=== PATIENT | male | born 1980 | race Caucasian/White ===

== ENCOUNTER 2017-04-25 20:26 | Emergency (ER) | payer MEDICARE, MEDICAID ==
[2017-04-25 20:47] VITALS: BP 135/45
[2017-04-25] MEDS ORDERED: Ketorolac 60 MG/2 ML SDV IM ONE (21:01)
--- NOTE | 2017-04-25 21:04 | EDM.PDOC ---
ED HPI GENERAL MEDICAL PROBLEM - General Chief Complaint: Upper Extremity Injury/Pain Stated Complaint: RIGHT SHOULDER DISLOCATION Time Seen by Provider: 04/25/17 20:57 Source of Information: Reports: Patient, Family, RN Notes Reviewed History Limitations: Reports: No Limitations - History of Present Illness INITIAL COMMENTS - FREE TEXT/NARRATIVE: 36-year-old gentleman presents to emergency department today with complaint of right shoulder pain, he has a history of multiple shoulder dislocations he feels he recently dislocated shoulder. While intake with nursing staff he had a spontaneous reduction, improved pain control now 5 out of 10 - Related Data Allergies Allergy/AdvReac Type Severity Reaction Status Date / Time gabapentin Allergy Unknown Bleeding Verified 04/25/17 20:36 lidocaine Allergy Unknown Swollen Verified 04/25/17 20:36 Tongue Home Meds: Home Meds Carisoprodol 350 mg PO QID PRN 02/11/13 [History] Pantoprazole [ProTONIX] 40 mg PO BIDAC #60 tab.cr 07/25/13 [Rx] oxyCODONE HCl [Oxycontin] 30 mg PO Q4H 11/09/13 [History] Ondansetron [Zofran ODT] 4 mg PO Q8H PRN 10/02/14 [History] Past Medical History Gastrointestinal History: Reports: PUD Musculoskeletal History: Reports: Fracture, Other (See Below) (Multiple shoulder dislocations with surgeries) Neurological History: Reports: Other (See Below) 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 - Infectious Disease History Infectious Disease History: Reports: Chicken Pox - Past Surgical History Musculoskeletal Surgical History: Reports: Shoulder Surgery, Other (See Below) Social & Family History - Tobacco Use Smoking Status *Q: Current Every Day Smoker Years of Tobacco use: 10 Packs/Tins Daily: 0.5 Used Tobacco, but Quit: No Month Tobacco Last Used: nov Second Hand Smoke Exposure: Yes - Caffeine Use Caffeine Use: Reports: None - Alcohol Use Days Per Week of Alcohol Use: 0 - Recreational Drug Use Recreational Drug Use: No Recreational Drug Type: Reports: Marijuana/Hashish Recreational Drug Use Frequency: Socially Review of Systems - Review of Systems Review Of Systems: See Below Constitutional: Reports: No Symptoms Musculoskeletal: Reports: Shoulder Pain Skin: Reports: No Symptoms Neurological: Reports: No Symptoms ED EXAM, GENERAL - Physical Exam Exam: See Below Free Text/Narrative:: examination of the left shoulder do appreciate scar tissue in the integument system I cannot appreciate any bump he does have limited range of motion of the shoulder radial pulse is +2. Range of motion of digits Course - Vital Signs Last Recorded V/S: Last Vital Signs Temp 97.7 F 04/25/17 20:44 Pulse 80 04/25/17 20:44 Resp 14 04/25/17 20:44 BP 135/45 L 04/25/17 20:44 Pulse Ox 96 04/25/17 20:44 - Orders/Labs/Meds Orders: Active Orders 24 hr Category Date Time Status Shoulder Comp Rt [CR] Stat Exams 04/25/17 21:01 Taken Meds: Medications Discontinued Medications Generic Name Dose Route Start Last Admin Trade Name Royal PRN Reason Stop Dose Admin Ketorolac Tromethamine 60 mg 04/25/17 21:01 04/25/17 21:07 Toradol IM 04/25/17 21:02 60 mg ONETIME ONE Administration Departure - Departure Time of Disposition: 21:34 Disposition: Home, Self-Care 01 Condition: Fair Clinical Impression: Recurrent dislocation, right shoulder - Discharge Information Referrals: Jimmy Rawls MD [Primary Care Provider] - Forms: ED Department Discharge Additional Instructions: Please contact your orthopedic surgeon next week for further evaluation, call return to the emergency department with worsening of symptoms - My Orders Last 24 Hours: My Active Orders 04/25/17 21:01 Shoulder Comp Rt [CR] Stat - Assessment/Plan Last 24 Hours: My Active Orders 04/25/17 21:01 Shoulder Comp Rt [CR] Stat Plan: Assessment Acuity = acute Site and laterality = recurrent shoulder dislocation Etiology = spontaneous reduction Manifestations = pain Location of injury = Home Lab values = x-ray shows appropriate alignment of the shoulder, official read radiology is pending Plan He was provided 60 mg Toradol for pain control, and to follow-up with orthopedics next week This note was dictated using [email or web address] voice recognition software please call with any questions on syntax or aldair.
--- NOTE | 2017-04-28 09:25 | CR ---
Shoulder Comp Rt INDICATION: spontanous reduction COMPARISON: 01/08/2012 FINDINGS: 2 views. No fracture, dislocation, or other acute bony abnormality. Previous fixation h ardware in the glenoid has been removed.
== END 2017-04-25 22:44 | disposition home or self-care (01) ==
LOC: JP.ED 20:26
DX: M24.411 Recurrent dislocation, right shoulder (principal); Z88.8 Allergy status to other drugs, medicaments and biological substances; F17.210 Nicotine dependence, cigarettes, uncomplicated
CPT/HCPCS: 73030; 96372; 99284; J1885; 99283

== ENCOUNTER 2017-08-13 12:21 | Emergency (ER) | payer MEDICARE, MEDICAID ==
[2017-08-13] MEDS ORDERED: Sodium Chloride 0.9% 10 ML Syringe FLUSH PRN (12:41)
[2017-08-13] MEDS ORDERED: HYDROmorphone 0.5 MG/0.5 ML Syringe IVPUSH ONE ×2 (12:42→13:44)
--- NOTE | 2017-08-13 13:19 | CR ---
Shoulder Comp Rt HISTORY: Pain COMPARISON: 04/25/2017 FINDINGS: Anterior inferior dislocation right shoulder. Postoperative changes within the glenoid with 2 old screw tracts present. No acute fracture.
[2017-08-13] MEDS ORDERED: Propofol 200 MG/20 ML SDV ONE (13:32)
--- NOTE | 2017-08-13 13:55 | EDM.PDOC ---
ED HPI GENERAL MEDICAL PROBLEM - General Chief Complaint: Upper Extremity Injury/Pain Stated Complaint: DISLOCATED RT SHOULDER Time Seen by Provider: 08/13/17 12:45 Source of Information: Reports: Patient, Family History Limitations: Reports: No Limitations - History of Present Illness INITIAL COMMENTS - FREE TEXT/NARRATIVE: pt arrived with pain in the rt shoulder. He got up from resting and felt like the shoulder was out of place. He has dislocatd the shoulder many times in the past. He tried to get it back in and he was not able to do that at home. Onset: Sudden Duration: Hour(s): Location: Reports: Upper Extremity, Right Associated Symptoms: Reports: No Other Symptoms Right Shoulder Pain Score (Numeric/FACES): 7 - Related Data Allergies Allergy/AdvReac Type Severity Reaction Status Date / Time gabapentin Allergy Unknown Bleeding Verified 04/25/17 20:36 lidocaine Allergy Unknown Swollen Verified 04/25/17 20:36 Tongue Home Meds: Home Meds Carisoprodol 350 mg PO QID PRN 02/11/13 [History] Pantoprazole [ProTONIX] 40 mg PO BIDAC #60 tab.cr 07/25/13 [Rx] oxyCODONE HCl [Oxycontin] 30 mg PO Q4H 11/09/13 [History] Ondansetron [Zofran ODT] 4 mg PO Q8H PRN 10/02/14 [History] Past Medical History - Past Health History Medical/Surgical History: Denies Medical/Surgical History Gastrointestinal History: Reports: PUD Musculoskeletal History: Reports: Fracture, Other (See Below) Neurological History: Reports: Other (See Below) 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 - Infectious Disease History Infectious Disease History: Reports: Chicken Pox - Past Surgical History Musculoskeletal Surgical History: Reports: Shoulder Surgery, Other (See Below) Social & Family History - Tobacco Use Smoking Status *Q: Current Every Day Smoker Years of Tobacco use: 15 Packs/Tins Daily: 0.5 Used Tobacco, but Quit: No Month/Year Tobacco Last Used: nov Second Hand Smoke Exposure: Yes - Caffeine Use Caffeine Use: Reports: Coffee, Soda, Tea - Alcohol Use Days Per Week of Alcohol Use: 0 - Recreational Drug Use Recreational Drug Use: No Recreational Drug Type: Reports: Marijuana/Hashish Recreational Drug Use Frequency: Socially Review of Systems - Review of Systems Review Of Systems: See Below Constitutional: Reports: No Symptoms Eyes: Reports: No Symptoms Ears: Reports: No Symptoms Nose: Reports: No Symptoms Mouth/Throat: Reports: No Symptoms Respiratory: Reports: No Symptoms Cardiovascular: Reports: No Symptoms Musculoskeletal: Reports: Other (pt has a dislocated shoulder in the rt. ) ED EXAM, GENERAL - Physical Exam Exam: See Below Free Text/Narrative:: pt has a history of multiple dislocations in the shoulder on the rt. He got up from resting and he dilocated the shoulder today. Exam Limited By: No Limitations General Appearance: Alert, Severe Distress Ears: Normal TMs Nose: Normal Inspection Throat/Mouth: Normal Inspection Head: Atraumatic Neck: Normal Inspection Respiratory/Chest: No Respiratory Distress Cardiovascular: Regular Rate, Rhythm Course - Vital Signs Last Recorded V/S: Last Vital Signs Temp 36.6 C 08/13/17 14:34 Pulse 62 08/13/17 14:34 Resp 12 08/13/17 14:34 BP 125/76 08/13/17 14:34 Pulse Ox 97 08/13/17 14:34 - Orders/Labs/Meds Orders: Active Orders 24 hr Category Date Time Status Sodium Chloride 0.9% [Saline Flush] Med 08/13/17 12:41 Active 10 ml FLUSH ASDIRECTED PRN Saline Lock Insert [OM.PC] Routine Oth 08/13/17 12:41 Ordered Medication Orders Sodium Chloride (Saline Flush) 10 ml FLUSH ASDIRECTED PRN PRN Reason: Keep Vein Open Last Admin: 08/13/17 13:14 Dose: 10 ml Meds: Medications Generic Name Dose Route Start Last Admin Trade Name Freq PRN Reason Stop Dose Admin Sodium Chloride 10 ml 08/13/17 12:41 08/13/17 13:14 Saline Flush FLUSH 10 ml ASDIRECTED PRN Administration Keep Vein Open Discontinued Medications Generic Name Dose Route Start Last Admin Trade Name Freq PRN Reason Stop Dose Admin Hydromorphone HCl 0.5 mg 08/13/17 12:42 08/13/17 13:15 Dilaudid IVPUSH 08/13/17 12:43 0.5 mg ONETIME ONE Administration Hydromorphone HCl 0.5 mg 08/13/17 13:44 08/13/17 14:27 Dilaudid IVPUSH 08/13/17 13:45 0.5 mg ONETIME ONE Administration Propofol Confirm 08/13/17 13:32 Diprivan 20 Ml Administered 08/13/17 13:33 Dose 200 mg .ROUTE .STK-MED ONE - Re-Assessments/Exams Free Text/Narrative Re-Assessment/Exam: 08/13/17 14:15 anesthia --Skyler sedated the pt--conscious sedation . The shoulder was reducd without difficulty. 08/13/17 14:16 He will be recovered and placed in a shoulder imobilizer. Departure - Departure Time of Disposition: 14:39 Disposition: Home, Self-Care 01 Condition: Fair Clinical Impression: Shoulder dislocation - Discharge Information Referrals: Jimmy Rawls MD [Primary Care Provider] - Forms: ED Department Discharge Care Plan Goals: continue same pain meds, shoulder imoblizer, cool pack to the shoulder. - My Orders Last 24 Hours: My Active Orders 08/13/17 12:41 Sodium Chloride 0.9% [Saline Flush] 10 ml FLUSH ASDIRECTED PRN Saline Lock Insert [OM.PC] Routine - Assessment/Plan Last 24 Hours: My Active Orders 08/13/17 12:41 Sodium Chloride 0.9% [Saline Flush] 10 ml FLUSH ASDIRECTED PRN Saline Lock Insert [OM.PC] Routine
[2017-08-13 14:19] VITALS: BP 125/76
--- NOTE | 2017-08-13 14:38 | CR ---
Shoulder 1V Rt HISTORY: Shoulder dislocation. COMPARISON: Shoulder films earlier today. FINDINGS: The dislocation has been reduced. No acute fracture seen.
--- NOTE | 2017-08-13 18:20 | ANES ---
DATE OF SERVICE: 08/13/2017 TIME: 1405 hours. I was called to the emergency room by Dr. Sultana to evaluate Mr. Avalos for a closed reduction of right shoulder. He dislocated his right shoulder this morning and he is here today to have it reduced. The risks and benefits of the procedure were explained to the patient and he wished to proceed with the right shoulder closed reduction by Dr. Sultana. I did give him 200 mg total of propofol throughout the procedure. His right shoulder was relocated by Dr. Sultana. He tolerated the procedure very nicely. His vital signs remained stable throughout the procedure and nurse was with me the entire procedure. There were no anesthesia complications noted. Skyler Ferguson CRNA /[id number]
== END 2017-08-13 14:10 | disposition home or self-care (01) ==
LOC: JP.ED 12:21
DX: S43.014A Anterior dislocation of right humerus, initial encounter (principal); S43.034A Inferior dislocation of right humerus, initial encounter; F17.210 Nicotine dependence, cigarettes, uncomplicated; Z88.8 Allergy status to other drugs, medicaments and biological substances; X58.XXXA Exposure to other specified factors, initial encounter
CPT/HCPCS: 23650; 73020; 73030; 96374; 96376; 99284; J1170; J2704; J7050

== ENCOUNTER 2017-12-17 15:53 | Emergency (ER) | payer MEDICARE, MEDICAID ==
[2017-12-17 16:04] VITALS: BP 147/112
--- NOTE | 2017-12-17 16:27 | EDM.PDOCBH ---
ED HPI GENERAL MEDICAL PROBLEM - General Chief Complaint: Behavioral/Psych Stated Complaint: medical clearance Time Seen by Provider: 12/17/17 16:22 Source of Information: Reports: Patient, Old Records, RN History Limitations: Reports: No Limitations - History of Present Illness INITIAL COMMENTS - FREE TEXT/NARRATIVE: 37 yo male here by police for medical clearance before releasing him to home from group home. The police felt at one point he may have been suicidal and want him checked out. Danny denies being suicidal or depressed. He his with children. Has plans for the weekend. No hx of suicide attempts. Onset: Unknown/Unsure Context: Reports: Other (miscommunication by police.) Associated Symptoms: Reports: No Other Symptoms Treatments ANGLE BENDER: Reports: Other (see below) (none) Right Shoulder Pain Score (Numeric/FACES): 8 - Related Data Allergies Allergy/AdvReac Type Severity Reaction Status Date / Time gabapentin Allergy Unknown Bleeding Verified 04/25/17 20:36 lidocaine Allergy Unknown Swollen Verified 04/25/17 20:36 Tongue Home Meds: Home Meds Carisoprodol 350 mg PO QID PRN 02/11/13 [History] Pantoprazole [ProTONIX] 40 mg PO BIDAC #60 tab.cr 07/25/13 [Rx] oxyCODONE HCl [Oxycontin] 30 mg PO Q4H 11/09/13 [History] Ondansetron [Zofran ODT] 4 mg PO Q8H PRN 10/02/14 [History] Past Medical History - Past Health History Medical/Surgical History: Denies Medical/Surgical History Gastrointestinal History: Reports: PUD Musculoskeletal History: Reports: Fracture, Other (See Below) Neurological History: Reports: Other (See Below) 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 - Infectious Disease History Infectious Disease History: Reports: Chicken Pox - Past Surgical History Musculoskeletal Surgical History: Reports: Shoulder Surgery, Other (See Below) Social & Family History - Tobacco Use Smoking Status *Q: Heavy Tobacco Smoker Years of Tobacco use: 15 Packs/Tins Daily: 0.7 - Caffeine Use Caffeine Use: Reports: None - Recreational Drug Use Recreational Drug Use: No ED ROS GENERAL - Review of Systems Review Of Systems: See Below Constitutional: Reports: No Symptoms HEENT: Reports: No Symptoms Respiratory: Reports: No Symptoms Cardiovascular: Reports: No Symptoms Skin: Reports: No Symptoms Neurological: Reports: No Symptoms Psychiatric: Denies: Anxiety, Depression, Suicidal Ideation ED EXAM, BEHAVIORAL HEALTH - Physical Exam Exam: See Below Exam Limited By: No Limitations General Appearance: Alert, WD/WN, No Apparent Distress Eye Exam: Bilateral Eye: Normal Inspection Ears: Normal External Exam, Normal Canal, Hearing Grossly Normal Nose: Normal Inspection, Normal Mucosa, No Blood Throat/Mouth: Normal Inspection, Normal Lips Head: Atraumatic, Normocephalic Neck: Normal Inspection, Supple Respiratory/Chest: No Respiratory Distress, Lungs Clear, Normal Breath Sounds, No Accessory Muscle Use Cardiovascular: Regular Rate, Rhythm, No Edema Extremities: Normal Inspection Neurological: Alert, Normal Mood/Affect, CN II-XII Intact, No Motor/Sensory Deficits, Oriented x 3 Psychiatric: Alert, Normal Affect, Normal Cognition, Normal Mood, Oriented. No : Depressed Mood, Flat Affect, Tearful, Agitated, Poor Eye Contact, Homicidal Thoughts, Suicidal Plan, Suicidal Thoughts Skin Exam: Warm, Dry, Intact, Normal color, No rash COURSE, BEHAVIORAL HEALTH COMP - Course Vital Signs: Last Vital Signs Temp 36.2 C 12/17/17 16:02 Pulse 82 12/17/17 16:02 Resp 18 12/17/17 16:02 BP 147/112 H 12/17/17 16:02 Pulse Ox 95 12/17/17 16:02 Departure - Departure Time of Disposition: 16:26 Disposition: Home, Self-Care 01 Condition: Good Clinical Impression: Medical clearance for incarceration - Discharge Information *PRESCRIPTION DRUG MONITORING PROGRAM REVIEWED*: Not Applicable *COPY OF PRESCRIPTION DRUG MONITORING REPORT IN PATIENT GEGE: Not Applicable Referrals: PCP,None [Primary Care Provider] - Additional Instructions: Continue usual medications. Recheck as needed. Suggest a BP check within the week.
== END 2017-12-17 16:32 | disposition home or self-care (01) ==
LOC: JP.ED 15:53
DX: Z02.89 Encounter for other administrative examinations (principal); F17.210 Nicotine dependence, cigarettes, uncomplicated; Z88.8 Allergy status to other drugs, medicaments and biological substances
CPT/HCPCS: 99285

== ENCOUNTER 2018-01-05 06:26 | Emergency (ER) | payer MEDICARE, MEDICAID ==
[2018-01-05] MEDS ORDERED: Sodium Chloride 0.9% 10 ML Syringe FLUSH PRN (06:30)
[2018-01-05] MEDS ORDERED: LORazepam 2 MG/ML SDV IVPUSH ONE (06:30)
[2018-01-05] MEDS ORDERED: fentaNYL 100 MCG/2 ML SDV IVPUSH ONE (06:30)
--- NOTE | 2018-01-05 06:33 | EDM.PDOC ---
<OfficerTho - Last Filed: 01/05/18 06:31> ED HPI GENERAL MEDICAL PROBLEM - General Chief Complaint: Upper Extremity Injury/Pain Stated Complaint: RIGHT SHOULDER INJURY Time Seen by Provider: 01/05/18 06:29 Source of Information: Reports: Patient, RN Notes Reviewed History Limitations: Reports: No Limitations - History of Present Illness INITIAL COMMENTS - FREE TEXT/NARRATIVE: 37-year-old gentleman presents to the emergency department today with complaint of right shoulder dislocation, unfortunately he has had he states over 3 dozen shoulder dislocations has had multiple surgeries on the shoulder. It is believed the shoulder spontaneously dislocated while in his sleep. As he awoke this morning in pain difficulty moving the arm consistent with shoulder dislocations. He denies any trauma - Related Data Allergies Allergy/AdvReac Type Severity Reaction Status Date / Time gabapentin Allergy Unknown Bleeding Verified 01/05/18 06:48 lidocaine Allergy Unknown Swollen Verified 01/05/18 06:48 Tongue Home Meds: Home Meds Carisoprodol 350 mg PO QID PRN 02/11/13 [History] Pantoprazole [ProTONIX] 40 mg PO BIDAC #60 tab.cr 07/25/13 [Rx] oxyCODONE HCl [Oxycontin] 30 mg PO Q4H 11/09/13 [History] Ondansetron [Zofran ODT] 4 mg PO Q8H PRN 10/02/14 [History] Past Medical History Gastrointestinal History: Reports: PUD Musculoskeletal History: Reports: Fracture, Other (See Below) (Multiple shoulder dislocations) Neurological History: Reports: Other (See Below) 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 - Infectious Disease History Infectious Disease History: Reports: Chicken Pox - Past Surgical History Musculoskeletal Surgical History: Reports: Shoulder Surgery, Other (See Below) Social & Family History - Tobacco Use Smoking Status *Q: Current Every Day Smoker - Caffeine Use Caffeine Use: Reports: None Review of Systems - Review of Systems Review Of Systems: See Below Respiratory: Reports: No Symptoms Cardiovascular: Reports: No Symptoms Musculoskeletal: Reports: Shoulder Pain ED EXAM, GENERAL - Physical Exam Exam: See Below Free Text/Narrative:: Examination the right shoulder he is in moderate amount pain difficult to an exam but there is not is deformity appears to be anterior in nature Exam Limited By: No Limitations General Appearance: Alert, Mild Distress Respiratory/Chest: No Respiratory Distress, Lungs Clear, Normal Breath Sounds, No Accessory Muscle Use Cardiovascular: Regular Rate, Rhythm, No Murmur Course - Vital Signs Last Recorded V/S: Last Vital Signs Temp 36.6 C 01/05/18 06:43 Pulse 85 01/05/18 06:43 Resp 24 H 01/05/18 06:43 BP 129/101 H 01/05/18 06:43 Pulse Ox 92 L 01/05/18 06:43 - Orders/Labs/Meds Orders: Active Orders 24 hr Category Date Time Status Peripheral IV Care [RC] . DIRECTED Care 01/05/18 06:31 Active Shoulder 1V Rt [CR] Stat Exams 01/05/18 07:21 Taken Shoulder Comp Rt [CR] Stat Exams 01/05/18 06:30 Taken Sodium Chloride 0.9% [Saline Flush] Med 01/05/18 06:30 Active 10 ml FLUSH ASDIRECTED PRN Peripheral IV Insertion Adult [OM.PC] Urgent Oth 01/05/18 06:29 Ordered Medication Orders Sodium Chloride (Saline Flush) 10 ml FLUSH ASDIRECTED PRN PRN Reason: Keep Vein Open Last Admin: 01/05/18 06:43 Dose: 10 ml Meds: Medications Generic Name Dose Route Start Last Admin Trade Name Freq PRN Reason Stop Dose Admin Sodium Chloride 10 ml 01/05/18 06:30 01/05/18 06:43 Saline Flush FLUSH 10 ml ASDIRECTED PRN Administration Keep Vein Open Discontinued Medications Generic Name Dose Route Start Last Admin Trade Name Freq PRN Reason Stop Dose Admin Fentanyl 100 mcg 01/05/18 06:30 01/05/18 06:39 Sublimaze IVPUSH 01/05/18 06:31 100 mcg ONETIME ONE Administration Lorazepam 1 mg 01/05/18 06:30 01/05/18 06:38 Ativan IVPUSH 01/05/18 06:31 1 mg ONETIME ONE Administration Oxycodone HCl 20 mg 01/05/18 07:50 Oxycontin PO 01/05/18 07:51 ONETIME ONE Departure - Departure Disposition: Home, Self-Care 01 Clinical Impression: Shoulder dislocation - Discharge Information Referrals: Jimmy Rawls MD [Primary Care Provider] - Forms: ED Department Discharge Care Plan Goals: contact [facility] regarding possible surgery, cont same pain meds, coolpack to shoulder today. Shoulder imoblizer for the next 10 days. - My Orders Last 24 Hours: My Active Orders 01/05/18 07:21 Shoulder 1V Rt [CR] Stat - Assessment/Plan Last 24 Hours: My Active Orders 01/05/18 07:21 Shoulder 1V Rt [CR] Stat <Aleja Sultana - Last Filed: 01/05/18 07:58> ED HPI GENERAL MEDICAL PROBLEM right shoulder Pain Score (Numeric/FACES): 9 Course - Re-Assessments/Exams Free Text/Narrative Re-Assessment/Exam: 01/05/18 07:25 pt was sedated by anesthesia and with minimal manipulation the shoulder was put back in. He has had multiple dislocations in the past.pt recovered rapidly from the sedation 01/05/18 07:55 Departure - Departure Time of Disposition: 07:53 Condition: Fair
[2018-01-05 06:47] VITALS: BP 129/101
[2018-01-05] MEDS ORDERED: oxyCODONE ER 20 MG TAB.ER PO ONE (07:50)
--- NOTE | 2018-01-05 08:23 | CR ---
Shoulder Comp Rt HISTORY: dislocation FINDINGS: Head of the humerus is located inferior medial to the glenoid process of the scapula consis tent with anterior right shoulder dislocation. No obvious fracture can be seen on images obtained. Ri ght upper chest is clear. AC joint is not widened. IMPRESSION: Anterior dislocation right shoulder.
--- NOTE | 2018-01-06 09:07 | CR ---
Shoulder 1V Rt HISTORY: post reduction FINDINGS: There has been reduction of anterior right shoulder dislocation. No fracture is identified. There is mild residual inferior subluxation. Remainder of the shoulder is stable. IMPRESSION: Reduction of right shoulder dislocation. There is mild residual subluxation. No fracture can be seen.
== END 2018-01-05 08:09 | disposition home or self-care (01) ==
LOC: JP.ED 06:26
DX: M24.411 Recurrent dislocation, right shoulder (principal); Z88.8 Allergy status to other drugs, medicaments and biological substances; Z79.899 Other long term (current) drug therapy; Z79.891 Long term (current) use of opiate analgesic; K27.9 Peptic ulcer, site unspecified, unspecified as acute or chronic, without hemorrhage or perforation; Z98.890 Other specified postprocedural states; G58.9 Mononeuropathy, unspecified; F17.200 Nicotine dependence, unspecified, uncomplicated
CPT/HCPCS: 23650; 23655; 73020; 73030; 96374; 96375; 99282; 99284; A9270; J2060; J3010; J7050

== ENCOUNTER 2018-06-12 10:57 | Emergency (ER) | payer MEDICARE, MEDICAID ==
[2018-06-12] MEDS: fentaNYL 100 MCG/2 ML SDV IVPUSH ONE (11:30)
[2018-06-12] MEDS: HYDROmorphone 1 MG/ML Syringe IVPUSH ONE (11:31)
[2018-06-12] MEDS: LORazepam 2 MG/ML SDV IVPUSH ONE (11:31)
[2018-06-12 11:44] VITALS: BP 139/100
--- NOTE | 2018-06-12 12:46 | CRLCR ---
INDICATION: Pain. Technique: Single AP view the right shoulder. Findings : Slight inferior subluxation of the humeral head without obvious dislocation. No acute fractures seen. [place] deformity. Subacromial spur. Dictated by Cely Ramon MD @ Jun 12 2018 12:41PM Signed by Dr. Cely Ramon @ Jun 12 2018 12:44PM
--- NOTE | 2018-06-12 13:06 | EDM.PDOC ---
ED HPI GENERAL MEDICAL PROBLEM - General Chief Complaint: Upper Extremity Injury/Pain Stated Complaint: DISLOCATED SHOULDER Time Seen by Provider: 06/12/18 11:08 Source of Information: Reports: Patient, Old Records, RN Notes Reviewed History Limitations: Reports: No Limitations - History of Present Illness INITIAL COMMENTS - FREE TEXT/NARRATIVE: 38-year-old gentleman presents emergency department today with complaint of shoulder dislocation, he has a history of multiple shoulder dislocations states this happened while he was sleeping, he is in a moderate amount pain and he is holding his right arm - Related Data Allergies Allergy/AdvReac Type Severity Reaction Status Date / Time gabapentin Allergy Unknown Bleeding Verified 06/12/18 11:34 lidocaine Allergy Unknown Swollen Verified 06/12/18 11:34 Tongue Home Meds: Home Meds Carisoprodol 350 mg PO QID PRN 02/11/13 [History] Pantoprazole [ProTONIX] 40 mg PO BIDAC #60 tab.cr 07/25/13 [Rx] oxyCODONE HCl [Oxycontin] 30 mg PO Q4H 11/09/13 [History] Ondansetron [Zofran ODT] 4 mg PO Q8H PRN 10/02/14 [History] Past Medical History HEENT History: Reports: Impaired Vision Gastrointestinal History: Reports: GERD, PUD Musculoskeletal History: Reports: Fracture, Other (See Below) (Multiple shoulder dislocations) Neurological History: Reports: Other (See Below) 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 - Infectious Disease History Infectious Disease History: Reports: Chicken Pox - Past Surgical History Musculoskeletal Surgical History: Reports: Shoulder Surgery, Other (See Below) Social & Family History - Tobacco Use Smoking Status *Q: Current Every Day Smoker Years of Tobacco use: 20 Packs/Tins Daily: 0.1 - Caffeine Use Caffeine Use: Reports: None Review of Systems - Review of Systems Review Of Systems: See Below Constitutional: Reports: No Symptoms Musculoskeletal: Reports: Shoulder Pain ED EXAM, GENERAL - Physical Exam Exam: See Below Free Text/Narrative:: Examination the right shoulder I don't appreciate any deformity, however after initial pain medication he was able to roll onto his abdomen and applied gentle pressure to the shoulder, this produced a spontaneous reduction, at the time I can examine him after better pain control he has limited range of motion with 90 abduction and has 180 of rotation radial pulse is +2 Exam Limited By: No Limitations General Appearance: Alert, Moderate Distress Respiratory/Chest: No Respiratory Distress Course - Vital Signs Last Recorded V/S: Last Vital Signs Temp 97.2 F 06/12/18 11:43 Pulse 80 06/12/18 11:43 Resp 14 06/12/18 11:43 BP 139/100 H 06/12/18 11:43 Pulse Ox 98 06/12/18 11:43 - Orders/Labs/Meds Orders: Active Orders 24 hr Category Date Time Status Ketorolac [Toradol] Med 06/12/18 13:01 Once 30 mg IVPUSH ONETIME ONE Medication Orders Ketorolac Tromethamine (Toradol) 30 mg IVPUSH ONETIME ONE Stop: 06/12/18 13:02 Meds: Medications Generic Name Dose Route Start Last Admin Trade Name Freq PRN Reason Stop Dose Admin Ketorolac Tromethamine 30 mg 06/12/18 13:01 Toradol IVPUSH 06/12/18 13:02 ONETIME ONE Discontinued Medications Generic Name Dose Route Start Last Admin Trade Name Freq PRN Reason Stop Dose Admin Fentanyl 100 mcg 06/12/18 11:08 06/12/18 11:30 Sublimaze IVPUSH 06/12/18 11:09 100 mcg ONETIME ONE Administration Hydromorphone HCl 1 mg 06/12/18 11:23 06/12/18 11:31 Dilaudid IVPUSH 06/12/18 11:24 1 mg ONETIME ONE Administration Lorazepam 1 mg 06/12/18 11:08 06/12/18 11:31 Ativan IVPUSH 06/12/18 11:09 1 mg ONETIME ONE Administration Departure - Departure Time of Disposition: 13:05 Disposition: Home, Self-Care 01 Condition: Fair Clinical Impression: Shoulder subluxation, right Qualifiers: Encounter type: initial encounter Qualified Code(s): S43.001A - Unspecified subluxation of right shoulder joint, initial encounter - Discharge Information Referrals: PCP,None [Primary Care Provider] - Additional Instructions: Continue regular medications, Please followup with your orthopedic surgeon on Thursday, please call return to the emergency department with worsening of symptoms. - My Orders Last 24 Hours: My Active Orders 06/12/18 13:01 Ketorolac [Toradol] 30 mg IVPUSH ONETIME ONE - Assessment/Plan Last 24 Hours: My Active Orders 06/12/18 13:01 Ketorolac [Toradol] 30 mg IVPUSH ONETIME ONE Plan: Assessment Acuity = acute Site and laterality = right shoulder subluxation Etiology = unknown etiology Manifestations = none Location of injury = Home Lab values = x-ray shows shoulder subluxation Plan He received 100 zan grams panel 1 mg Ativan 1 mg Dilaudid and 30 mg Toradol he is placed in a sling he will contact his orthopedic surgeon on Thursday This note was dictated using [employer] voice recognition software please call with any questions on syntax or grammar.
[2018-06-12] MEDS: Ketorolac 30 MG/ML SDV IVPUSH ONE (13:08)
== END 2018-06-12 13:24 | disposition home or self-care (01) ==
LOC: JP.ED 10:57
DX: S43.001A Unspecified subluxation of right shoulder joint, initial encounter (principal); F17.210 Nicotine dependence, cigarettes, uncomplicated; Z88.8 Allergy status to other drugs, medicaments and biological substances; X58.XXXA Exposure to other specified factors, initial encounter
CPT/HCPCS: 73020; 96374; 96375; 99284; J1170; J1885; J2060; J3010; 99283

== ENCOUNTER 2018-09-14 03:33 | Emergency (ER) | payer OTHER, MEDICARE, MEDICAID ==
[2018-09-14 03:38] VITALS: BP 133/95
[2018-09-14] MEDS ORDERED: fentaNYL 100 MCG/2 ML SDV IVPUSH ONE (03:46)
[2018-09-14] MEDS ORDERED: HYDROmorphone 1 MG/ML Syringe IVPUSH ONE ×2 (04:13→06:03)
[2018-09-14] MEDS ORDERED: LORazepam 2 MG/ML SDV IVPUSH ONE (04:13)
--- NOTE | 2018-09-14 04:18 | CRLCR ---
Indication: Right shoulder dislocation Technique: Single frontal view right shoulder Comparison: June 12, 2018 Findings/impression: There is an anterior shoulder dislocation. No fracture identified. Remainder of the osseous structures are intact. Dictated by Claritza Sandoval MD @ Sep 14 2018 4:14AM Signed by Dr. Claritza Sandoval @ Sep 14 2018 4:17AM
[2018-09-14] MEDS ORDERED: Etomidate 2 MG/ML 10 ML SDV IVPUSH ONE (04:33)
[2018-09-14] MEDS ORDERED: HYDROmorphone 0.5 MG/0.5 ML Syringe IVPUSH ONE (04:39)
[2018-09-14] MEDS ORDERED: Sodium Chloride 0.9% 1,000 ML IV SCH (04:45)
--- NOTE | 2018-09-14 05:38 | EDM.PDOC ---
ED HPI GENERAL MEDICAL PROBLEM - General Chief Complaint: Upper Extremity Injury/Pain Stated Complaint: MEDICAL VIA [facility] Time Seen by Provider: 09/14/18 04:12 Source of Information: Reports: Patient, Old Records, RN Notes Reviewed History Limitations: Reports: No Limitations - History of Present Illness INITIAL COMMENTS - FREE TEXT/NARRATIVE: 38-year-old gentleman presents emergency department today complaint of right shoulder dislocation, has a history of multiple shoulder dislocations this with spontaneous he is set for surgery on 14 October Right Shoulder Pain Score (Numeric/FACES): 7 - Related Data Allergies Allergy/AdvReac Type Severity Reaction Status Date / Time gabapentin Allergy Unknown Bleeding Verified 09/14/18 03:35 lidocaine Allergy Unknown Swollen Verified 09/14/18 03:35 Tongue Home Meds: Home Meds Carisoprodol 350 mg PO QID PRN 02/11/13 [History] oxyCODONE HCl [Oxycontin] 30 mg PO Q4H 11/09/13 [History] Ondansetron [Zofran ODT] 4 mg PO Q8H PRN 10/02/14 [History] Pantoprazole [ProTONIX] 40 mg PO BIDAC PRN 09/14/18 [History] Past Medical History HEENT History: Reports: Impaired Vision Gastrointestinal History: Reports: GERD, PUD Musculoskeletal History: Reports: Fracture, Other (See Below) Neurological History: Reports: Other (See Below) 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 - Infectious Disease History Infectious Disease History: Reports: Chicken Pox - Past Surgical History Musculoskeletal Surgical History: Reports: Shoulder Surgery, Other (See Below) Other Musculoskeletal Surgeries/Procedures:: planned shoulder surgery october 14 for the right shoulder Social & Family History - Family History Family Medical History: Noncontributory - Tobacco Use Smoking Status *Q: Current Every Day Smoker Years of Tobacco use: 15 Packs/Tins Daily: 0.1 - Caffeine Use Caffeine Use: Reports: None - Recreational Drug Use Recreational Drug Use: No Review of Systems - Review of Systems Review Of Systems: See Below Musculoskeletal: Reports: Shoulder Pain Neurological: Reports: No Symptoms ED EXAM, GENERAL - Physical Exam Exam: See Below Free Text/Narrative:: Difficult to do an exam as he is in significant pain shoulder does have an obvious deformity ED TRAUMA EXTREMITY PROCEDURES - Joint Reduction Site: Shoulder (R) Sedation: Conscious Sedation Pre-Procedure NV Status: Normal Post-Procedure NV Status: Normal Technique: Traction/Counter Traction Number of Attempts: 1 Post-Reduction Imaging: Completely Reduced, No Fracture Seen Joint Reduction Complications: No Progress/Comments: 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 please see note for details prior to the use of propofol did try etomidate unfortunately he was never relaxed enough to even attempt the procedure, he was given 12 mg IV 1 Course - Vital Signs Last Recorded V/S: Last Vital Signs Temp 97.6 F 09/14/18 03:37 Pulse 110 H 09/14/18 03:37 Resp 18 09/14/18 03:37 BP 133/95 H 09/14/18 03:37 Pulse Ox 96 09/14/18 03:37 - Orders/Labs/Meds Orders: Active Orders 24 hr Category Date Time Status Sodium Chloride 0.9% [Normal Saline] 1,000 ml Med 09/14/18 04:45 Active IV ASDIRECTED Medication Orders Sodium Chloride (Normal Saline) 1,000 mls @ 500 mls/hr IV ASDIRECTED CATARINO Last Admin: 09/14/18 04:49 Dose: 500 mls/hr Meds: Medications Generic Name Dose Route Start Last Admin Trade Name Freq PRN Reason Stop Dose Admin Sodium Chloride 1,000 mls @ 500 mls/hr 09/14/18 04:45 09/14/18 04:49 Normal Saline IV 500 mls/hr ASDIRECTED CATARINO Administration Discontinued Medications Generic Name Dose Route Start Last Admin Trade Name Freq PRN Reason Stop Dose Admin Etomidate 12 mg 09/14/18 04:33 09/14/18 04:50 Amidate IVPUSH 09/14/18 04:34 12 mg ONETIME ONE Administration Fentanyl 100 mcg 09/14/18 03:46 09/14/18 03:52 Sublimaze IVPUSH 09/14/18 03:47 100 mcg ONETIME ONE Administration Hydromorphone HCl 1 mg 09/14/18 04:13 09/14/18 04:19 Dilaudid IVPUSH 09/14/18 04:14 1 mg ONETIME ONE Administration Hydromorphone HCl 0.5 mg 09/14/18 04:39 09/14/18 04:49 Dilaudid IVPUSH 09/14/18 04:40 0.5 mg ONETIME ONE Administration Lorazepam 1 mg 09/14/18 04:13 09/14/18 04:19 Ativan IVPUSH 09/14/18 04:14 1 mg ONETIME ONE Administration Propofol Confirm 09/14/18 05:45 Diprivan 20 Ml Administered 09/14/18 05:46 Dose 200 mg .ROUTE .STK-MED ONE Departure - Departure Time of Disposition: 05:50 Disposition: Home, Self-Care 01 Condition: Fair Clinical Impression: Shoulder dislocation Qualifiers: Encounter type: initial encounter Laterality: right Qualified Code(s): S43.004A - Unspecified dislocation of right shoulder joint, initial encounter - Discharge Information Referrals: PCP,None [Primary Care Provider] - Forms: ED Department Discharge Additional Instructions: Please call your orthopedic surgeon, use Percocet as needed for pain control, call or return to the emergency department worsening of symptoms - My Orders Last 24 Hours: My Active Orders 09/14/18 04:45 Sodium Chloride 0.9% [Normal Saline] 1,000 ml IV ASDIRECTED - Assessment/Plan Last 24 Hours: My Active Orders 09/14/18 04:45 Sodium Chloride 0.9% [Normal Saline] 1,000 ml IV ASDIRECTED Plan: Assessment Acuity = acute Site and laterality = right shoulder dislocation with reduction under conscious sedation Etiology = unclear etiology Manifestations = none Location of injury = Home Lab values = pre-and post films were performed Plan He is placed in a sling will have him follow-up with his orthopedic surgeon today, discharged home with Percocet 5/325 one to 2 tablets by mouth every 4-6 hours when necessary total #6 This note was dictated using [employer] voice recognition software please call with any questions on syntax or grammar.
[2018-09-14] MEDS ORDERED: Propofol 200 MG/20 ML SDV ONE (05:45)
--- NOTE | 2018-09-14 05:47 | CRLCR ---
Indication: Postreduction Technique: Frontal view right shoulder Comparison: Same date at 4:03 a.m. Findings/impression: Interval reduction of right anterior shoulder dislocation. No acute fracture identified. Remainder of the osseous structures are intact. The right lung is clear. Dictated by Claritza Sandoval MD @ Sep 14 2018 5:44AM Signed by Dr. Claritza Sandoval @ Sep 14 2018 5:45AM
== END 2018-09-14 06:33 | disposition home or self-care (01) ==
LOC: JP.ED 03:33
DX: S43.004A Unspecified dislocation of right shoulder joint, initial encounter (principal); F17.210 Nicotine dependence, cigarettes, uncomplicated; Z88.8 Allergy status to other drugs, medicaments and biological substances; X58.XXXA Exposure to other specified factors, initial encounter
CPT/HCPCS: 23650; 73020; 96374; 96375; 96376; 99283; J1170; J2060; J2704; J3010; J3490; J7030

== ENCOUNTER 2018-09-15 19:45 | Emergency (ER) | payer OTHER, MEDICARE, MEDICAID ==
[2018-09-15 19:59] VITALS: BP 145/97
--- NOTE | 2018-09-15 20:32 | EDM.PDOC ---
ED HPI GENERAL MEDICAL PROBLEM - General Chief Complaint: Upper Extremity Injury/Pain Stated Complaint: PAIN RIGHT SHOULDER Time Seen by Provider: 09/15/18 20:23 Source of Information: Reports: Patient, Family, RN Notes Reviewed History Limitations: Reports: No Limitations - History of Present Illness INITIAL COMMENTS - FREE TEXT/NARRATIVE: 38-year-old gentleman presents emergency department today complaint of pain control I did have the opportunity to evaluate last night at which time we did shoulder reduction under conscious sedation with propofol. He states he's been unable to contact his primary care today for pain control. Right Shoulder Pain Score (Numeric/FACES): 8 - Related Data Allergies Allergy/AdvReac Type Severity Reaction Status Date / Time gabapentin Allergy Unknown Bleeding Verified 09/14/18 03:35 lidocaine Allergy Unknown Swollen Verified 09/14/18 03:35 Tongue Home Meds: Home Meds Carisoprodol 350 mg PO QID PRN 02/11/13 [History] oxyCODONE HCl [Oxycontin] 30 mg PO Q4H 11/09/13 [History] Ondansetron [Zofran ODT] 4 mg PO Q8H PRN 10/02/14 [History] Pantoprazole [ProTONIX] 40 mg PO BIDAC PRN 09/14/18 [History] Past Medical History HEENT History: Reports: Impaired Vision Gastrointestinal History: Reports: GERD, PUD Musculoskeletal History: Reports: Fracture, Other (See Below) Neurological History: Reports: Other (See Below) 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 multiple right shoulder dislocations Social & Family History - Family History Family Medical History: Noncontributory - Tobacco Use Smoking Status *Q: Current Every Day Smoker Years of Tobacco use: 20 Packs/Tins Daily: 1 - Caffeine Use Caffeine Use: Reports: None - Recreational Drug Use Recreational Drug Use: No Review of Systems - Review of Systems Review Of Systems: See Below Musculoskeletal: Reports: Shoulder Pain ED EXAM, GENERAL - Physical Exam Exam: See Below Exam Limited By: No Limitations General Appearance: Alert, WD/WN, No Apparent Distress Respiratory/Chest: No Respiratory Distress Course - Vital Signs Last Recorded V/S: Last Vital Signs Temp 99.5 F 09/15/18 19:59 Pulse 98 09/15/18 19:59 Resp 16 09/15/18 19:59 BP 145/97 H 09/15/18 19:59 Pulse Ox 98 09/15/18 19:59 - Orders/Labs/Meds Meds: Medications Discontinued Medications Generic Name Dose Route Start Last Admin Trade Name Royal PRN Reason Stop Dose Admin Hydromorphone HCl 1 mg 09/15/18 20:27 Dilaudid IM 09/15/18 20:28 ONETIME ONE Departure - Departure Time of Disposition: 20:31 (\) Disposition: Home, Self-Care 01 Condition: Poor Clinical Impression: Shoulder pain, right Qualifiers: Chronicity: chronic Qualified Code(s): M25.511 - Pain in right shoulder; G89.29 - Other chronic pain - Discharge Information Referrals: Jimmy Rawls MD [Primary Care Provider] - Additional Instructions: Use ibuprofen for baseline pain control use Percocet as needed for breakthrough pain, please contact your primary care and orthopedic surgeon for further follow -up - Assessment/Plan Plan: Assessment Acuity = acute Site and laterality = status post reduction right shoulder Etiology = recent dislocation Manifestations = pain Location of injury = Home Lab values = none Plan He was provided 1 mg Dilaudid IM prescription written for oxycodone/Tylenol 5/ 325 one tab by mouth 3 times a day. Total #10 This note was dictated using [employer] voice recognition software please call with any questions on syntax or grammar.
[2018-09-15] MEDS: HYDROmorphone 1 MG/ML Syringe IM ONE (20:40)
[2018-09-15] MEDS: Ondansetron 4 MG Tab.DIS PO ONE (20:50)
== END 2018-09-15 20:53 | disposition home or self-care (01) ==
LOC: JP.ED 19:45
DX: M25.511 Pain in right shoulder (principal); K21.9 Gastro-esophageal reflux disease without esophagitis; F17.210 Nicotine dependence, cigarettes, uncomplicated; Z88.8 Allergy status to other drugs, medicaments and biological substances; Z88.4 Allergy status to anesthetic agent; Z79.899 Other long term (current) drug therapy
CPT/HCPCS: 96372; 99283; A9270; J1170

== ENCOUNTER 2018-12-08 17:16 | Emergency (ER) | payer MEDICARE, MEDICAID ==
[2018-12-08 17:34] VITALS: BP 151/79; PULSE 95
[2018-12-08] MEDS ORDERED: Ketorolac 60 MG/2 ML SDV IM ONE (17:59)
--- NOTE | 2018-12-08 18:06 | EDM.PDOC ---
ED HPI GENERAL MEDICAL PROBLEM - General Chief Complaint: Upper Extremity Injury/Pain Stated Complaint: POST SURGERY ISSUES Time Seen by Provider: 12/08/18 17:50 Source of Information: Reports: Patient, Old Records, RN History Limitations: Reports: No Limitations - History of Present Illness INITIAL COMMENTS - FREE TEXT/NARRATIVE: 38 yo male had extensive reconstruction surgery on his R shoulder at [facility] one mos ago. He is still on oxycodone 15 mg per dose and a shoulder immobilizer. Today he got between his dog and a pit bull that was starting to fight with his much smaller dog. He felt a tear in the R shoulder and now has a marked increase in his pain. He has plenty of oxycodone left at home. He has a F/U appt at [facility] on 12/13. 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) Right Shoulder Pain Score (Numeric/FACES): 8 - Related Data Allergies Allergy/AdvReac Type Severity Reaction Status Date / Time gabapentin Allergy Unknown Bleeding Verified 12/08/18 17:29 lidocaine Allergy Unknown Swollen Verified 12/08/18 17:29 Tongue Home Meds: Home Meds Carisoprodol 350 mg PO QID PRN 02/11/13 [History] oxyCODONE HCl [Oxycontin] 15 mg PO Q4H 11/09/13 [History] Ondansetron [Zofran ODT] 4 mg PO Q8H PRN 10/02/14 [History] Pantoprazole [ProTONIX] 40 mg PO BIDAC PRN 09/14/18 [History] LORazepam [Ativan] 0.5 mg PO ASDIRECTED 12/08/18 [History] Past Medical History - Past Health History Medical/Surgical History: Denies Medical/Surgical History HEENT History: Reports: Impaired Vision Gastrointestinal History: Reports: GERD, PUD Musculoskeletal History: Reports: Fracture, Other (See Below) Neurological History: Reports: Other (See Below) 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 multiple right shoulder dislocations Social & Family History - Family History Family Medical History: Noncontributory - Tobacco Use Smoking Status *Q: Current Every Day Smoker Years of Tobacco use: 15 Packs/Tins Daily: 0.1 Used Tobacco, but Quit: No - Caffeine Use Caffeine Use: Reports: None - Recreational Drug Use Recreational Drug Use: No Review of Systems - Review of Systems Review Of Systems: See Below Constitutional: Reports: No Symptoms Eyes: Reports: No Symptoms Ears: Reports: No Symptoms Nose: Reports: No Symptoms Musculoskeletal: Reports: Joint Pain (R shoulder) Skin: Reports: No Symptoms Neurological: Reports: No Symptoms ED EXAM, GENERAL - Physical Exam Exam: See Below Exam Limited By: No Limitations General Appearance: Alert, WD/WN, No Apparent Distress Eye Exam: Bilateral Eye: Normal Inspection Ears: Normal External Exam, Hearing Grossly Normal Ear Exam: Bilateral Ear: Auricle Normal, Canal Normal Nose: Normal Inspection, No Blood Throat/Mouth: Normal Inspection, Normal Lips, Normal Voice, No Airway Compromise Head: Atraumatic, Normocephalic Neck: Normal Inspection Respiratory/Chest: No Respiratory Distress, No Accessory Muscle Use Cardiovascular: Regular Rate, Rhythm, No Edema Back Exam: Normal Inspection Extremities: Normal Inspection, No Pedal Edema, Limited Range of Motion (R shoulder). No: Normal Range of Motion (shoulder immobilizer on R arm. ), Non- Tender, Pedal Edema, Increased Warmth, Redness Neurological: Alert, Oriented, CN II-XII Intact, Normal Cognition, No Motor/ Sensory Deficits Psychiatric: Normal Affect, Normal Mood Skin Exam: Warm, Dry, Intact, Normal Color, No Rash Course - Vital Signs Last Recorded V/S: Last Vital Signs Temp 36.3 C 12/08/18 17:34 Pulse 95 12/08/18 17:34 Resp 18 12/08/18 17:34 BP 151/79 H 12/08/18 17:34 Pulse Ox 94 L 12/08/18 17:34 - Orders/Labs/Meds Orders: Active Orders 24 hr Category Date Time Status Shoulder Comp Rt [CR] Stat Exams 12/08/18 18:00 Ordered Meds: Medications Discontinued Medications Generic Name Dose Route Start Last Admin Trade Name Freq PRN Reason Stop Dose Admin Ketorolac Tromethamine 60 mg 12/08/18 17:59 12/08/18 18:04 Toradol IM 12/08/18 18:00 60 mg ONETIME ONE Administration - Radiology Interpretation Free Text/Narrative:: R shoulder X-ray-neg Departure - Departure Time of Disposition: 18:20 Disposition: Home, Self-Care 01 Condition: Fair Clinical Impression: Shoulder pain, right Qualifiers: Chronicity: chronic Qualified Code(s): M25.511 - Pain in right shoulder - Discharge Information *PRESCRIPTION DRUG MONITORING PROGRAM REVIEWED*: No *COPY OF PRESCRIPTION DRUG MONITORING REPORT IN PATIENT GEGE: No Referrals: Jimmy Rawls MD [Primary Care Provider] - Forms: ED Department Discharge Additional Instructions: Continue your current treatments. F/U with [facility] as scheduled, or sooner if possible. Take your X-rays to your appt. Recheck with your primary if more pain meds are needed. - My Orders Last 24 Hours: My Active Orders 12/08/18 18:00 Shoulder Comp Rt [CR] Stat - Assessment/Plan Last 24 Hours: My Active Orders 12/08/18 18:00 Shoulder Comp Rt [CR] Stat
--- NOTE | 2018-12-08 19:15 | CRLCR ---
Indication: Pain Technique: Four views of the right shoulder Comparison: 02/14/2018 Findings/Impression: Bones: Interval postsurgical changes with 2 screws in the inferior aspect of the glenoid. Squared appearance of the inferior glenoid on the 2nd view could be postsurgical. No evidence of an acute displaced fracture or dislocation. Joint spaces: Unremarkable. Soft tissues: Unremarkable. Dictated by Enoc Oneil MD @ 12/08/2018 7:14:23 PM Dictated by: Enoc Oneil MD @ 12/08/2018 19:14:34 (Electronically Signed)
== END 2018-12-08 18:24 | disposition home or self-care (01) ==
LOC: JP.ED 17:16
DX: M25.511 Pain in right shoulder (principal); K21.9 Gastro-esophageal reflux disease without esophagitis; F17.210 Nicotine dependence, cigarettes, uncomplicated; Z88.8 Allergy status to other drugs, medicaments and biological substances; Z79.899 Other long term (current) drug therapy
CPT/HCPCS: 73030; 96372; 99283; J1885; 99282